=== PATIENT | male | born 1940 | race Caucasian/White ===

== ENCOUNTER 2017-08-19 17:44 | Emergency (ER) | payer OTHER ==
[~2017-08-19] VITALS: Ht 175.3 cm; Wt 73.9 kg
[~2017-08-19 17:44] MED LIST: ALENDRONATE SOD70 MG PO; ASPIRIN EC81 MG PO; ATORVASTATIN CA40 MG PO; COUMADIN5 MG PO; D-20002000 UNIT PO; GLIPIZIDE XL10 MG PO; HYDROCHLOROTH12.5 MG PO; LEVAQUIN500 MG PO; LISINOPRIL40 MG PO; LOVASTATIN40 MG PO; METOPROLOL SUCC25 MG PO; METOPROLOL TART25 MG PO; NORCO 5-325 TA1 EACH PO; NOVOLOG100 UNIT/1 SUB-Q; ROBAXIN500 MG PO; TOPROL XL50 MG PO; TRAMADOL HCL50 MG PO; TRIAMCINOLONE A15 GM TOP
--- NOTE | 2017-08-20 12:14 | EKG ---
[facility] [address] [place], [place] [address] Signed Sinus bradycardia Nonspecific ST and T wave abnormality Abnormal ECG No previous ECGs available Confirmed by LOPEZ VALENTINE MD ([id number]) on 08/20/2017 12:14:24 PM Electronically Signed By: LOPEZ VALENTINE MD 08/20/17 1214 PATIENT NAME: KALEB LÓPEZ LORNA Electrocardiogram DATE OF : 42 PHYSICIAN: LOPEZ VALENTINE MD REPORT #: [id number] REPORT IS CONFIDENTIAL AND NOT TO BE RELEASED WITHOUT AUTHORIZATION
== END 2017-08-19 19:42 | disposition home or self-care (01) ==
LOC: ED 17:44
DX: R07.89 Other chest pain (principal); I10 Essential (primary) hypertension; E11.9 Type 2 diabetes mellitus without complications; I25.2 Old myocardial infarction; Z87.891 Personal history of nicotine dependence; Z88.8 Allergy status to other drugs, medicaments and biological substances; Z79.82 Long term (current) use of aspirin; Z79.4 Long term (current) use of insulin; Z79.899 Other long term (current) drug therapy
CPT/HCPCS: 71046; 80053; 84484; 85025; 93005; 93010; 99284

== ENCOUNTER 2020-07-24 11:38 | Emergency (ER) | payer MEDICARE ==
[~2020-07-24] VITALS: Ht 175.3 cm; Wt 69.8 kg
[2020-07-24] MEDS ORDERED: GLIPIZIDE10 MG PO (11:50)
[2020-07-24] MEDS ORDERED: LISINOPRIL-HCT1 EAC2 PO (11:51)
== END 2020-07-24 12:47 | disposition home or self-care (01) ==
LOC: ED 11:38
DX: M75.21 Bicipital tendinitis, right shoulder (principal); I10 Essential (primary) hypertension; E11.9 Type 2 diabetes mellitus without complications; E78.00 Pure hypercholesterolemia, unspecified; I25.2 Old myocardial infarction; Z87.891 Personal history of nicotine dependence; Z79.899 Other long term (current) drug therapy
CPT/HCPCS: 73030; 99283-25

== ENCOUNTER 2021-02-28 11:21 | Inpatient (IN) | payer MEDICARE ==
[~2021-02-28] VITALS: Ht 175.3 cm; Wt 77.8 kg
[~2021-02-28 11:21] MED LIST changes: +ADULT LOW DOSE81 MG PO; -ASPIRIN EC81 MG PO; +GLIPIZIDE10 MG PO; +LISINOPRIL-HCT1 EAC2 PO; +NOVOLIN N100 UNIT/1 SUB-Q; -NOVOLOG100 UNIT/1 SUB-Q
[2021-02-28] MEDS ORDERED: LOSARTAN-HCTZ1 EACH PO (12:50)
[2021-02-28] MEDS ORDERED: METOPROLOL SUCC50 MG PO (12:51)
[2021-02-28] MEDS ORDERED: INCRUSE ELLI62.5 MCG INH (12:52)
[2021-02-28] MEDS ORDERED: VENTOLIN HFA18 GM INH (13:01)
--- NOTE | 2021-02-28 14:20 | NUR ---
Report received from Erika TOLBERT in ED. Awaiting patient arrival to [place] [id number]
--- NOTE | 2021-02-28 14:34 | NUR ---
Medications reconciled with pharmacy records and patient interview
--- NOTE | 2021-02-28 15:15 | NUR ---
Pt arrives to med surg unit via stretcher. Assessment complete. Per report L side facial droop, not noted at this time. Pt does however have severe L side neglect and vision changes. History obtained from patient who is oriented to all, but slurred speech and some expressive aphasia noted. Pt is aware when his speech is slurred and does immediately attempt to correct himself. VSS. Tele in place, SR. IVF infusing WNL. Personal belongings and call light placed to R side on table. Pt oriented to room/unit, call light system. Bed alarm on at this time.
--- NOTE | 2021-02-28 15:45 | NUR ---
IVF infusing WNL. Pt resting in bed, his S.O. Dusty at bedside. He states no pain or needs. He reports "wanting to go home", understands that he needs to be monitored overnight however.
--- NOTE | 2021-02-28 16:45 | NUR ---
Scheduled humulin administered, CBG checked 115, no SS provided. Pt has difficulty eating dinner with regards to hand-eye coordination. Continuing to notice L side neglect, uncoordinated movements with hands. Pt requires verbal cues with ambulation and tasks such as washing hands. Bed alarm on. Will continue to monitor.
--- NOTE | 2021-02-28 19:15 | NUR ---
SHIFT REPORT RECEIVED FROM [facility] TOMASZ MARRUFO AT BEDSIDE. pt AWAKE AND RESTING IN BED, BED ALARM ON. RR EVEN AND UNLABORED, NO DISTRESS NOTED. IV FLUIDS INFUSING AT 200MLS/HR, SITE WNL. pt VERBALIZES NEED TO VOID, CHRISTEN BERMUDEZ IN ROOM TO ASSIST WITH URINAL.
--- NOTE | 2021-02-28 19:25 | NUR ---
1 PA TO THE BATHROOM. PATIENT WANTED HIS PANTS ON. PATIENT TEND TO LEAN ON HIS LEFT SIDE WHEN URINATING ON THE TOILET STANDING. PATIENT IS BACK IN BED. BED ALARM ON FOR SAFETY.
--- NOTE | 2021-02-28 20:11 | NUR ---
VERBAL REPORT GIVEN TO TOMASZ WRIGHT, TOMASZ WRIGHT TO ASSUME CARE FOR pt.
--- NOTE | 2021-02-28 21:42 | NUR ---
PT CALLED NURSES STATION TO REPORT ALARM IN ROOM, THIS RN INTO ROOM TO ASSESS. IV PUMP IS ALARMING INFUSION IS COMPLETE, START NEW INFUSION AT 125ML/HR PER ORDERS. NO OTHER CONCERNS OR REQUESTS AT THIS TIME.
--- NOTE | 2021-02-28 22:35 | NUR ---
PT UP TO BATHROOM AMBULATED WELL ONE PERSON ASSIST, HE WAS UNABLE TO AIM TO HIT THE COLLECTION HAT VOIDING TO LEFT OF TOILET ONTO FLOOR. ASSISTED PT WITH DIRECTING STREAM TO COLLECTION HAT. NIH SCORE 4 AT THIS TIME. NOTED TO HAVE VISUAL FIELD DEFICITS. PT REPORTS NO PAIN, OR NAUSEA. OFFERED HIM MELATONIN AND HE SAID "YES PLEASE"
--- NOTE | 2021-02-28 23:48 | NUR ---
PT CALL TO REQUEST A SNACK, HE SAID HE USUALLY HAS BROWNIES BY HIS BED AT HOME. PT GIVEN APPLE JUICE AND PUDDING. HE SAID THAT WILL BE GREAT. NO OTHER CONCERNS OR REQUESTS AT THIS TIME., BED ALARM ON FOR PT SAFETY, CALL LIGHT IN REACH.
--- NOTE | 2021-03-01 01:44 | NUR ---
PT RESTING QUIELTY IN BED RR EVEN AT 18 BPM, NO DISTRESS NOTED AT THIS TIME. CALL LIGHT IN REACH, BED ALARM ON FOR PATIENT SAFETY
--- NOTE | 2021-03-01 02:57 | NUR ---
BED ALARMING. PATIENT GOT UP TO USE THE TOILET. SBA. PATIENT IS BACK IN BED. WARM BLANKET PROIVDED. NO OTHER NEEDS AT THIS TIME. BED ALARM ON FOR SAFETY. CALL LIGHT WITHIN REACH.
--- NOTE | 2021-03-01 04:30 | NUR ---
CALL LIGHT ANSWERED. SBA TO THE BATHROOM AND BACK TO BED. V/S AND I&O'S DONE AND RECORDED. BED ALARM ON.
--- NOTE | 2021-03-01 04:32 | NUR ---
PT HAS SLEPT WELL OVER SHIFT, NEURO ASSESSMENTS STABLE NO NEW DEFICITS, HIS SPEECH DEFICIT IS RESOLVING, MINIMAL LEFT FACIAL DROOP, REMAINS POSITIVE FOR LEFT HEMIANOPIA. HE IS ALERT AND ORIENTED X4, AMBULATES WITH STEADY GAIT STANDBY ASSIST. VOIDS TO LEFT OF TOILET WHEN STANDING, REQUIRES ASSISTANCE TO CORRECT AIM. NIH 4 THIS SHIFT.
--- NOTE | 2021-03-01 07:27 | NUR ---
Report received from Tabby TOLBERT. Pt resting in bed with eyes closed, respirations even and unlabored. No needs identified at this time. Will continue plan of care.
--- NOTE | 2021-03-01 07:50 | NUR ---
PT AWAKE IN ROOM. PT IS SBA TO THE BATHROOM AND BACK TO THE CHAIR. CHAIR ALARM IS ON, PT EATING BREAKFAST. CHAIR ALARM IS ON. CALL LIGHT WITHIN REACH, AND THIS SEAMING INSPECTOR EXPLAINED TO PT HOW TO USE IT. NO FURTHER NEEDS AT THIS TIME.
--- NOTE | 2021-03-01 08:14 | NUR ---
Scheduled medications administered, assessment complete. Pt up to chair with SBA, IVF infusing WNL. Pt continues to have L sided neglect, able to feed himself breakfast with limited assistance. Occasional stuttering with speech, some slurred speech noted, pt immediately corrects himself when needed. Daughter Martha at bedside, engaged in care. Chair alarm in place, call light in reach, pt states he will use it.
--- NOTE | 2021-03-01 10:00 | NUR ---
Pt ambulates to BR with SBA. IVF DC'd per order. Pt tolerates ambulation well at this time, needs verbal cues to sit on toilet. Pt's daughter Martha in room.
--- NOTE | 2021-03-01 10:02 | NUR ---
PT WALKED BACK TO BED FROM THE BATHROOM WITH THE HELP OF HIS DAUGHTER. PT NOW RESTING IN BED WITH EYES CLOSED. CALL LIGHT WITHIN REACH. NO FURTHER NEEDS AT THIS TIME.
--- NOTE | 2021-03-01 10:40 | NUR ---
Spoke with Robert and his daughter, Martha. He states he lives in a 1 story home with his bologna lacer. She and daughter will assist him as need ed. Pt drives and is active. Pt is anxious and would like to leave today. He wants to see his dog. He will need PT/OT/ST per therapists. Pt is agreeable to go to OP. He denies weakness or vision issues. He is unaware. Pt denies needs and does not use any DME. Home when cleared by
--- NOTE | 2021-03-01 11:57 | NUR ---
Pt returns from CT scan, IVF infusing WNL. Pt's daughter at bedside and updated on patient condition.
[2021-03-01] MEDS ORDERED: CLOPIDOGREL75 MG PO (12:44)
--- NOTE | 2021-03-01 13:00 | NUR ---
Received referral for OP therapy. Faxed face sheet,Referral, H7P, DC summary, PT/OT evals to OP therapy.
--- NOTE | 2021-03-01 17:58 | EKG ---
[facility] [address] [facility] [place], [place] [address] \T\ T wave abnormality, consider lateral ischemia Abnormal ECG When compared with ECG of 19-AUG-2017 17:48, T wave inversion now evident in Lateral leads Confirmed by TAMELA TOLBERT DO ([id number]) on 03/01/2021 5:57:50 PM Electronically Signed By: TAMELA TOLBERT DO 03/01/21 1758 PATIENT NAME: BRUNILDA LÓPEZLIANET ROTHMAN Electrocardiogram DATE OF : 42 PHYSICIAN: TAMELA TOLBERT DO REPORT #: [id number] REPORT IS CONFIDENTIAL AND NOT TO BE RELEASED WITHOUT AUTHORIZATION
== END 2021-03-01 14:10 | disposition home or self-care (01) | DRG 65 ==
LOC: ED 11:21 → MS 14:11
PROVIDERS: ADMIT Student in an Organized Health Care Education/Training Program; ATTEND Student in an Organized Health Care Education/Training Program
DX: I63.511 Cerebral infarction due to unspecified occlusion or stenosis of right middle cerebral artery (principal); N17.9 Acute kidney failure, unspecified; R29.706 NIHSS score 6; Z20.822 Contact with and (suspected) exposure to COVID-19; E87.5 Hyperkalemia; I10 Essential (primary) hypertension; E11.9 Type 2 diabetes mellitus without complications; E78.00 Pure hypercholesterolemia, unspecified; R47.1 Dysarthria and anarthria; R29.810 Facial weakness; R47.81 Slurred speech; J44.9 Chronic obstructive pulmonary disease, unspecified; I25.2 Old myocardial infarction; Z87.891 Personal history of nicotine dependence; Z88.8 Allergy status to other drugs, medicaments and biological substances; Z79.82 Long term (current) use of aspirin; Z79.84 Long term (current) use of oral hypoglycemic drugs; Z79.899 Other long term (current) drug therapy
CPT/HCPCS: 70450; 70496; 70498; 71045; 80048; 80061; 83036; 83735; 83880; 84484; 85025; 85610; 85730; 93005; 97022; 97162; 99285-25; C9803; J1815; J7121; U0003

== ENCOUNTER 2022-02-11 15:16 | Emergency (ER) | payer MEDICARE ==
[~2022-02-11] VITALS: Ht 175.3 cm; Wt 72.6 kg
[~2022-02-11 15:16] MED LIST changes: +CITALOPRAM HBR10 MG PO; +CLOPIDOGREL75 MG PO; +INCRUSE ELLI62.5 MCG INH; +LOSARTAN-HCTZ1 EACH PO; +METOPROLOL SUC200 MG PO; +METOPROLOL SUCC50 MG PO; +OSELTAMIVIR PHO30 MG PO; +VENTOLIN HFA18 GM INH; +VITAMIN D325 MCG PO
--- OUTSIDE RECORDS SUMMARY | 2022-02-11 15:24 | XMS ---
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 Quan has no Care Guidelines for this patient. [facility] MO[facility] NOTE: Visits indicate total known visits. ED/C VISIT TRACKING (12 MO.) 02/11/2022 15:16 [facility] [place] TYPE: Emergency COMPLAINT: - FALL, R SIDE RIBCAGE PAIN 02/03/2022 10:50 [facility] [place] TYPE: Emergency COMPLAINT: - COUGH, N/V/D, HEADACHE 02/28/2021 11:21 [facility] [place] TYPE: Emergency COMPLAINT: - STROKE SYMPTOMS INPATIENT VISIT TRACKING (12 MO.) 02/03/2022 16:41 [facility] [place] TYPE: Critical Care COMPLAINT: - INFLUENZA A, ATRIAL FIBRILLATION W/ RVR DIAGNOSES: - residential (current) use of aspirin - Type 2 diabetes mellitus with diabetic chronic kidney disease - Paroxysmal atrial fibrillation - Other termite control service representative (current) drug therapy - Contact with and (suspected) exposure to COVID-19 - Allergy status to other drugs, medicaments and biological substances - Contact with and (suspected) exposure to COVID-19 - Hypertensive heart and chronic kidney disease with heart failure and stage 1 through stage 4 chronic kidney disease, or unspecified chronic kidney disease - residential (current) use of antithrombotics/antiplatelets - salvage determiner (current) use of oral hypoglycemic drugs - salvage determiner (current) use of oral hypoglycemic drugs - salvage determiner (current) use of antithrombotics/antiplatelets - Atherosclerotic heart disease of seminole coronary artery without angina pectoris - Do not resuscitate - Pure hypercholesterolemia, unspecified - Personal history of nicotine dependence - Hypertensive heart and chronic kidney disease with heart failure and stage 1 through stage 4 chronic kidney disease, or unspecified chronic kidney disease - Diaphragmatic hernia without obstruction or gangrene - Chronic kidney disease, stage 3b - Chronic systolic (congestive) heart failure - Do not resuscitate - Atherosclerotic heart disease of seminole coronary artery without angina pectoris - Old myocardial infarction - Chronic systolic (congestive) heart failure - Paroxysmal atrial fibrillation - Other termite control service representative (current) drug therapy - Old myocardial infarction - Chronic kidney disease, stage 3b - Type 2 diabetes mellitus with diabetic chronic kidney disease - salvage determiner (current) use of aspirin - Influenza due to other identified influenza virus with other respiratory manifestations - Diaphragmatic hernia without obstruction or gangrene - Allergy status to other drugs, medicaments and biological substances - Pure hypercholesterolemia, unspecified - Personal history of nicotine dependence 02/28/2021 14:[address] [facility] [place] TYPE: Medical Surgical COMPLAINT: - CEREBROVASCULAR ACCIDENT DIAGNOSES: - Personal history of nicotine dependence - residential (current) use of aspirin - Facial weakness - residential (current) use of oral hypoglycemic drugs - Acute kidney failure, unspecified - Other care home (current) drug therapy - Chronic obstructive pulmonary disease, unspecified - Type 2 diabetes mellitus without complications - Other care home (current) drug therapy - Slurred speech - Personal history of nicotine dependence - NIHSS score 6 - Dysarthria and anarthria - Pure hypercholesterolemia, unspecified - Hyperkalemia - Old myocardial infarction - NIHSS score 6 - Essential (primary) hypertension - Old myocardial infarction - Type 2 diabetes mellitus without complications - Slurred speech - Allergy status to other drugs, medicaments and biological substances - Contact with and (suspected) exposure to COVID-19 - Chronic obstructive pulmonary disease, unspecified - Allergy status to other drugs, medicaments and biological substances - salvage determiner (current) use of oral hypoglycemic drugs - Hyperkalemia - Acute kidney failure, unspecified - salvage determiner (current) use of aspirin - Dysarthria and anarthria - 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
[2022-02-11] MEDS ORDERED: HYDROCODON-ACE1 EA10 PO (19:29)
== END 2022-02-11 20:16 | disposition home or self-care (01) ==
LOC: ED 15:16
DX: S22.41XA Multiple fractures of ribs, right side, initial encounter for closed fracture (principal); W18.30XA Fall on same level, unspecified, initial encounter; I10 Essential (primary) hypertension; E11.9 Type 2 diabetes mellitus without complications; E78.00 Pure hypercholesterolemia, unspecified; I25.2 Old myocardial infarction; Z87.891 Personal history of nicotine dependence; Z79.899 Other long term (current) drug therapy; Z88.8 Allergy status to other drugs, medicaments and biological substances
CPT/HCPCS: 71101; 99283-25; A9270

== ENCOUNTER 2022-03-26 11:28 | Inpatient (IN) | payer MEDICARE ==
[~2022-03-26] VITALS: Ht 175.3 cm; Wt 65.4 kg
[~2022-03-26 11:28] MED LIST changes: +HYDROCODON-ACE1 EA10 PO
--- NOTE | 2022-03-26 14:56 | EKG ---
[facility] [address] [facility] [place] [address] Signed Atrial fibrillation with rapid ventricular response ST \T\ T wave abnormality, consider inferior ischemia Abnormal ECG When compared with ECG of 03-FEB-2022 12:36, T wave inversion now evident in Inferior leads Nonspecific T wave abnormality no longer evident in Anterior leads Confirmed by Jayro Tello MD () on 03/26/2022 2:56:09 PM Electronically Signed By: JAYRO TELLO MD 03/26/22 1456 PATIENT NAME: KALEB LÓPEZ Electrocardiogram DATE OF : 42 PHYSICIAN: JAYRO TELLO MD REPORT #: [id number] REPORT IS CONFIDENTIAL AND NOT TO BE RELEASED WITHOUT AUTHORIZATION
[2022-03-26] MEDS ORDERED: METOPROLOL SUCC25 MG PO (15:20)
--- NOTE | 2022-03-26 16:05 | NUR ---
medications reconciled
--- NOTE | 2022-03-26 16:17 | NUR ---
REPORT RECEIVED FROM TOMASZ GALLO. THIS RN ASSUMING CARE OF PT. PT RESTING IN BED WITH EYES CLOSED. PT SEEN TO OPEN EYES AT TIMES. DOES NOT MAKE EYE CONTACT. PT GROAN IN ANSWER TO QUESTIONS, UNINTELLIGABLE. PT APPEARS AGITATED AND RESTLESS, FAMIY AGRESS. MEDICAITON GIVEN (SEE MAR). RASS SCORE OF -1, WITH RESTLESSNESS. FLACC SCORE OF 5/10. RESPIRATIONS VERY RASPY WITH AUDIBLE GARGLING HEARD. RESPIRATIONS UNEAVE WITH 2-5 SECOND PERIODS OF APENA, WHEN NOT APNIC, LABORED BREATHING IS NOTED WITH ACCESSORY MUSCLE USE AND ABDOMINAL MUSCLE USE. MD CALLED FOR ATROPINE DROPS. SEE MAR FOR MEDICATION GIVEN. PT REPOSITIONED WITH HEAD OF BED AT 25 DEGRES AND PILLOWS BOOSTED UNDER HEAD TO ASSIST WITH AIRWAY OPENING. NO CATHETER IN PLACE. PT DRY AT THIS TIME, FAMILY REPORTS INADEQUATE URINE OUTPUT. HEART TONES IRRGULAR. FAMILY REPORTS PT APPEARS COMFORTABLE AT THIS TIME. BED RAILS UP. CALL LIGHT WITHIN REACH. QUESTIONS ASKED AND ANSWERED BY FAMILY WHO REMAINS AT BEDSIDE.
--- NOTE | 2022-03-26 16:46 | NUR ---
THIS RN TO ROOM TO CHECK ON PT. PT CALM AND RELAXED, ORAL CARE DONE WITH SUCTION ORAL CARE KIT. MOUTH MOISTERIZER APPLIED. CHAPSTICK APPLIED. BREATHING CONTIUES TO BE RATTLING WITH "O" SIGN NOTED. 2-5 SECOND PERIODS OF APNEA CONTINUE. RASS SCORE OF -1. PT CALM AND RELAXED. FAMILY REPORTS PT APPEARS COMFORTABLE. NO ADDITONAL NEEDS AT THIS TIME. CALL LIGHT WITHIN REACH. BED RAILS UP.
--- NOTE | 2022-03-26 17:33 | NUR ---
THIS RN TO ROOM TO CHECK ON PT. RATTLES BREATHING CONTINUES ALTHOUGH IMPROVED. FLACC SCORE OF 4/10. FAMILY RPEORTS PT APPEARS COMFORTABLE AND STATES ADDITONAL PAIN MEDICATION AT THIS TIME "WOULD PROBABLY BE GOOD TO MAKE HIM COMFORTABLE" APNEA PERIODS NOW 5-8 SECONDS LONG. RASS SCORE OF -2, PT IS NOT OPENIGN EYES AT ALL AT THIS TIME. NO ADDITIONAL NEEDS AT THIS TIME. CALL LIGHT WIHTIN REACH. BED RAILS UP. FAMILY REAMINS AT BEDSIDE.
--- NOTE | 2022-03-26 17:37 | NUR ---
PT ARRIVED THIS SHIFT FOR COMFORT CARE AFTER POSSIBLE STROKE. PT ON BED REST AND RECEIVING COMFORT CARE MEDICATIONS. REPOSITIONING NEEDED FOR PT COMFORT. VITALS SIGNS ONLY AT REQUEST OF FAMILY. PRN SUBLINGUAL MORPHINE GIVEN THIS SHIFT FOR FLACC SCORE OF 3-5/10. ATAVAN GIVEN FOR AGIATION. ORAL CARE DONE WITH ORAL SUCTION CARE KIT. RESPIRATIONS WITH RETRACTIONS, LABORED BRAETHING AND APNIC PERIOS NOTED. ATROPINE DROPS GIVEN. IVS REMAIN IN PLACE FOR MEDICATION ADMINISTRATION. RASS SCORE OF -1 THROUGH -2 THIS SHIFT. NO VOIDS NOTED THIS SHIFT. PT DOES NOT USE CALL LIGHT OR MAKES NEEDS KNOWN. FAMILY AT BEDSIDE. HOURLY ROUNDING TO ENSURE NEEDS ARE MET.
--- NOTE | 2022-03-26 17:41 | NUR ---
PTS GRANDSON, WHO IS A PT AT THIS HOSPITAL IN ROOM (IN ADDITION TO OTHER FAMILY), APPROVAL GRANTED FROM RECORD LABEL INTERN FOR ROOM TO ROOM VISIT.
--- NOTE | 2022-03-26 18:33 | NUR ---
THIS RN TO ROOM TO CHECK ON PT. PT RESTING WITH EYES CLOSED. PT DOES NOT OPEN EYES OR ATTEMPT TO MAKE EYE CONTACT. RASS SCORE OF -2. FLACC SCORE OF 3/10. PTS FAMILY REPORTS PT COULD USE SOME MORE PAIN MEDICATION, SEE MAR FOR MEDICATION GIVEN. PT REMAINS IN SUPINE POSITION WITH HEAD OF BED ELEVATED TO 20 DEGREES. APNEA PERIODS NOW 5-10 SECONDS. NO ADDITIONAL NEEDS AT THIS TIME. FAMILY REMAINS AT BEDSIDE. BED RAILS UP CALL LIGHT WITHIN REACH.
--- NOTE | 2022-03-26 19:30 | NUR ---
ASSUMED CARE OF PT UPON RECEIVING BEDSIDE REPORT FROM DAY NURSE. FAMILY AT BEDSIDE. PT RESTING IN BED. APPEARS COMFORTABLE. NAD. FAMILY WITH NO C/O OR QUESTIONS. WILL CONTINUE TO MONITOR AND FOLLOW POC.
--- NOTE | 2022-03-27 02:47 | NUR ---
INFORMED BY PRIMARY RN ANH THAT pt's DAUGHTER IS REQUESTING LEAD CARE MANAGER TO PROVIDE LAST RIGHTS TO pt pt GREW UP EPISCOPAL. DISCUSSED WITH pt's DAUGHTER THAT HOSPITAL HAS PASTORAL CARE AVAILABLE BUT IS NOT DENOMINATION SPECIFIC (EXAMPLE:EPISCOPAL). pt's DAUGHTER OKAY WITH THAT AND REQUESTING PASTORAL CARE. FINISHED HARDWARE ERECTOR TO CALL PASTORAL CARE AT THIS TIME.
--- NOTE | 2022-03-27 04:20 | NUR ---
I WAS CALLED AT 0245 TO VISIT WITH FAMILY. PT WAS SLEEPING. TALKED WITH DAUGHTER ABOUT PROCESS. DAUGHTER WAS VERY TALKATIVE AND IS PLANNING TO STAY WITH HER DAD UNTIL HE DIES. PROVIDED PASTORAL CARE TO DAUGHTER. OFFERED A PRAYER.
--- NOTE | 2022-03-27 04:55 | NUR ---
NOTIFIED BY PATIENT'S DAUGHTER SHE BELIEVED PATIENT HAD . PT NEGATIVE FOR APICAL PULSE OR BREATH SOUNDS AFTER AUSCULTATING BOTH FOR ONE MINUTE EACH. FLOORWALKER AND ATTENDING PHYSICIAN NOTIFIED BY THIS OPTICS TECHNICAL OFFICER. FLOORWALKER NOTIFIED BRUSH HOLDER INSPECTOR.
--- NOTE | 2022-03-27 08:05 | NUR ---
DONOR LINE REPORTS THAT PT HAS POTENTIAL TO DONATE AND TO NOT RELEASE TO HOME YET
--- NOTE | 2022-03-27 08:09 | NUR ---
I WAS CALLED AT 0505 AND INFORMED PT HAD . PROVIDED PASTORAL CARE FOR DAUGHTER. SHE EXPRESSED WANTING COMPANY UNTIL HER SON DECIDED IF HE WANTED TO SEE PT. HE IS ALSO A PT. ONCE SON MADE DECISION DAUGHTER GATHERED ALL PT BELONGINGS AND WENT HOME. DONOR LINE REQUESTED WE WAIT TO RELEASE PT TO HOME. SUPERVISOR SOAKERS SAID THEY WOULD CALL THE HOME SINCE WE DID NOT KNOW HOW LONG THE WAIT WOULD BE.
--- NOTE | 2022-03-27 09:23 | NUR ---
SPOKE WITH DONOR LINE,DAVION. SHE STATED THAT SHE HAD SPOKE WITH [facility] AND WILL BE COORDINATING WITH THEM REGARDING POSSIBLE DONATION. CALLED THE MORT. AND THEY ARE ON THEIR WAY TO RETRIEVE. HAD PREVIOUSLY PLACED ON ICE BAGS ON EYES.
== END 2022-03-27 09:35 | DRG 65 ==
LOC: ED 11:28 → MS 14:49
PROVIDERS: ADMIT Family Medicine; ATTEND Family Medicine
DX: I63.9 Cerebral infarction, unspecified (principal); S22.41XA Multiple fractures of ribs, right side, initial encounter for closed fracture; Z51.5 Encounter for palliative care; Z20.822 Contact with and (suspected) exposure to COVID-19; E11.65 Type 2 diabetes mellitus with hyperglycemia; I10 Essential (primary) hypertension; I48.91 Unspecified atrial fibrillation; E78.00 Pure hypercholesterolemia, unspecified; I25.2 Old myocardial infarction; Z90.49 Acquired absence of other specified parts of digestive tract; Z98.890 Other specified postprocedural states; Z88.8 Allergy status to other drugs, medicaments and biological substances; Z79.02 Long term (current) use of antithrombotics/antiplatelets; Z79.84 Long term (current) use of oral hypoglycemic drugs; Z79.899 Other long term (current) drug therapy; X58.XXXA Exposure to other specified factors, initial encounter
CPT/HCPCS: 36415; 51701; 70450; 71045; 80053; 81001; 83605; 85025; 87502; 93005; 93010; 99285-25; C9803; J2060; J7030; U0003